=== PATIENT | male | born 1985 | race American Indian/Alaskan Native ===

== ENCOUNTER 2019-08-31 10:31 | Emergency (ER) | payer SELFPAY ==
[2019-08-31 10:37] VITALS: BP 166/93
--- NOTE | 2019-08-31 11:37 | Emergency Department Report ---
- General Chief Complaint: Sore Throat Stated Complaint: THROAT PAIN Time Seen by Provider: 08/31/19 11:03 Source: patient Mode of arrival: Ambulatory Limitations: No Limitations - History of Present Illness Initial Comments: 34-year-old male with a past medical history hypertension presents to the sore throat times one week. Patient states a cough productive of yellow sputum, n carlita congestion, and sore throat. No complaints of fever. Symptoms temporarily improved with [id number] medication. No difficulty swallowing or breathing reported. Patient also using nasal sprays with temporary reported improvement - Related Data Previous Rx's Medication Instructions Recorded Last Taken Type Dextromethorphan/Benzocaine 1 each PO Q2HR PRN #20 lozenge 08/31/19 Unknown Rx [Cepacol Sorethroat-Cough [place]] Sodium Chloride [Saline Nasal 1 - 2 sprays NS PRN PRN #1 bottle 08/31/19 Unknown Rx [place]] guaiFENesin/DEXTROMETHORPHAN 1 each PO BID PRN #20 tab.er.12h 08/31/19 Unknown Rx [Mucinex Dm ER 1,200-60 mg Tab] Allergies Allergy/AdvReac Type Severity Reaction Status Date / Time No Known Allergies Allergy Unverified 08/31/19 10:32 ED Review of Systems ROS: Stated complaint: THROAT PAIN Other details as noted in HPI Comment: All other systems reviewed and negative ED Past Medical Hx - Past Medical History Hx Hypertension: Yes - Surgical History Past Surgical History?: No - Medications Home Medications: Home Medications Medication Instructions Recorded Confirmed Last Taken Type Dextromethorphan/Benzocaine 1 each PO Q2HR PRN #20 lozenge 08/31/19 Unknown Rx [Cepacol Sorethroat-Cough [place]ena] Sodium Chloride [Saline Nasal 1 - 2 sprays NS PRN PRN #1 bottle 08/31/19 Unknown Rx [place]] guaiFENesin/DEXTROMETHORPHAN 1 each PO BID PRN #20 tab.er.12h 08/31/19 Unknown Rx [Mucinex Dm ER 1,200-60 mg Tab] ED Physical Exam - General Limitations: No Limitations - Other Other exam information: Gen.: No acute distress Head: Atraumatic Eyes: Normal appearance ENT: Moist mucous membranes, no edema, erythema, or exudate. No tender lymphadenopathy. Right nasal congestion Neck: Normal appearance, no posterior midline tenderness, no meningismus Chest: Clear to auscultation bilaterally Cardiovascular: Regular rate and rhythm Abdomen: Normal appearance, soft, nontender, no rebound or guarding, normal bowel sounds Back: Normal appearance, nontender Extremity: Full range of motion, normal appearance Neuro: Alert, clear speech, no focal motor or sensory deficit Psychiatric: Appropriate Skin: No rash ED Course Vital Signs 08/31/19 10:36 Temperature 98 F Pulse Rate 60 Respiratory 20 Rate Blood Pressure 166/93 [Left] O2 Sat by Pulse 98 Oximetry ED Medical Decision Making - Medical Decision Making Patient has URI symptoms involving cough, nasal congestion, and sore throat. Patient is afebrile and denies fever at home. Rapid strep is negative without signs exudates on exam. Patient be treated symptomatically for viral URI with viral pharyngitis. - Differential Diagnosis viral, bacterial, pharyngitis, URI Critical Care Time: No Critical care attestation.: If time is entered above; I have spent that time in minutes in the direct care of this critically ill patient, excluding procedure time. ED Disposition Clinical Impression: Viral URI, Pharyngitis Disposition: - TO HOME OR SELFCARE Is pt being admited?: No Does the pt Need Aspirin: No Condition: Stable Instructions: Upper Respiratory Infection (ED) Additional Instructions: Take the medication as prescribed. Follow-up with your doctor or with the doctor/clinic provided. Return if symptoms worsen as indicated by your discharge instructions. Prescriptions: Dextromethorphan/Benzocaine [Cepacol Sorethroat-Cough Leena] 1 each PO Q2HR PRN #20 lozenge PRN Reason: Sore Throat guaiFENesin/DEXTROMETHORPHAN [Mucinex Dm ER 1,200-60 mg Tab] 1 each PO BID PRN #20 tab.er.12h PRN Reason: Cough Sodium Chloride [Saline Nasal [place]] 1 - 2 sprays NS PRN PRN #1 bottle PRN Reason: Nasal Congestion Referrals: [facility] [Provider Group] - 3-5 Days Time of Disposition: 11:46
== END 2019-08-31 11:56 | disposition home or self-care (01) ==
LOC: ED 10:31
DX: J06.9 Acute upper respiratory infection, unspecified (principal); I10 Essential (primary) hypertension; Z79.899 Other long term (current) drug therapy
CPT/HCPCS: 87116; 87430

== ENCOUNTER 2019-09-03 15:12 | Emergency (ER) | payer SELFPAY ==
[2019-09-03 15:17] VITALS: BP 152/99
--- NOTE | 2019-09-03 15:29 | Emergency Department Report ---
Chief Complaint: Urogenital-Male Stated Complaint: STD CHECK Time Seen by Provider: 09/03/19 15:25 - HPI History of Present Illness: This is a 34-year-old male nontoxic, well in appearance with no signs of distress presents to the ED for STD check. Patient stated that his partner called and said has STD. Patient stated he is asymptotic. Denies any penile discharge, testicular pain, or swelling. Patient denies any urinary symptoms. Patient denies any fever, chills, headache, nausea, vomiting, chest pain or shortness of breathe. denies any other symptoms or complaints. Denies any allergies or PMH. - Exam Vital Signs: Vital Signs 09/03/19 15:15 Temperature 98.7 F Pulse Rate 103 H Respiratory 16 Rate Blood Pressure 152/99 O2 Sat by Pulse 96 Oximetry Physical Exam: no abdominal pain. no pelvic pain. no back pains. no urinary symptoms. no discharge. MSE screening note: Focused history and physical exam performed. Due to findings the following was ordered: ED Medical Decision Making - Medical Decision Making This is a 34-year-old male that presents with nonmedical emergency complaint. Patient is just requested for a STD test. Patient denies any symptoms. I gave patient many different referrals to follow-up with STD concerns. Patient was instructed to Follow-up with a primary care doctor in 3-5 days or if symptoms worsen and continue return to emergency room as soon as possible. At time of discharge, the patient does not seem toxic or ill in appearance. No acute signs of distress noted. Patient agrees to discharge treatment plan of care. No further questions noted by the patient. ED Disposition for MSE Clinical Impression: Possible exposure to STD Disposition: Z-07 MED SCREENING EXAM-LEFT Is pt being admited?: No Does the pt Need Aspirin: No Condition: Stable Instructions: Safe Sex (ED) Additional Instructions: Follow-up with the referrals that you have been provided in 3-5 days or if symptoms worsen and continue return to emergency room as soon as possible. Referrals: PRIMARY CARE, [Referring] - 3-5 Days GUSTAVO TROTTER MD [Staff Physician] - 3-5 Days [facility] [Outside] - 3-5 Days [facility] [Outside] - 3-5 Days
== END 2019-09-03 16:05 | disposition left against medical advice (07) ==
LOC: ED 15:12
DX: Z20.2 Contact with and (suspected) exposure to infections with a predominantly sexual mode of transmission (principal)
CPT/HCPCS: 99281

== ENCOUNTER 2020-01-27 10:15 | Emergency (ER) | payer SELFPAY ==
--- NOTE | 2020-01-27 12:09 | XRay Report ---
CHEST 2 VIEWS INDICATION / CLINICAL INFORMATION: cough. COMPARISON: None available. FINDINGS: SUPPORT DEVICES: None. HEART / MEDIASTINUM: No significant abnormality. LUNGS / PLEURA: No significant pulmonary or pleural abnormality. No pneumothorax. ADDITIONAL FINDINGS: No significant additional findings. IMPRESSION: 1. No acute abnormality of the chest. Signer Name: Ricardo Arora MD Signed: 01/27/2020 12:04 PM Workstation Name: [id number]
--- NOTE | 2020-01-27 12:31 | Emergency Department Report ---
Minor Respiratory - HPI Chief Complaint: Upper Respiratory Infection Stated Complaint: COLD SYM/HEADACHE Time Seen by Provider: 01/27/20 11:34 Pain Location: Facial, Throat, Nose Severity: mild Minor Respiratory: Yes Rhinorrhea, Yes Able to Tolerate Fluids, No Sore Throat, No Ear Pain, No Cough, No Sick Contacts, No Hemoptysis, No Chest Pain, No Shortness of Breath, No Fever Other History: Patient is a 34-year-old -[place] male who comes to the ER complaining of congestion and a nonproductive cough for 3 weeks. He denies any travel. He denies any known exposure to illness. He denies any recent travel. Patient states that he does have a 3-year-old that has had a runny nose for some time. Patient is here because he is concerned for CoVID19. Patient denies any shortness of breath. He is not hypoxic. His vital signs are normal as documented by the RN. Patient has a history of similar symptoms dating back to October when he was here and treated for sinus type symptoms at that time. He did not follow-up with PCP. ED Review of Systems ROS: Stated complaint: COLD SYM/HEADACHE Other details as noted in HPI Comment: All other systems reviewed and negative ED Past Medical Hx - Past Medical History Previous Medical History?: Yes Hx Hypertension: Yes - Surgical History Past Surgical History?: Yes Additional Surgical History: hernia repair - Family History Family history: no significant - Social History Smoking Status: Never Smoker Substance Use Type: Marijuana - Medications Home Medications: Home Medications Medication Instructions Recorded Confirmed Last Taken Type Azithromycin [Zithromax Z-DANYELL] 250 mg PO DAILY #6 tablet 01/27/20 Unknown Rx Fluticasone [Flonase] 1 spray NS QDAY #1 bottle 01/27/20 Unknown Rx predniSONE [Deltasone] 20 mg PO DAILY #5 tablet 01/27/20 Unknown Rx Minor Respiratory Exam - Exam General: Vital signs noted. No distress. Alert and acting appropriately. HEENT: Yes Moist Mucous Membranes, No Pharyngeal Erythema, No Pharyngeal Exudates, No Rhinorrhea, No Conjuctival Injection, No Frontal Tenderness, No Maxillary Tenderness Ear: Neither TM Bulge, Neither TM Erythema, Neither EAC Pain, Neither EAC Discharge Neck: Yes Supple, No Adenopathy Lungs: Yes Good Air Exchange, No Wheezes, No Ronchi, No Stridor, No Cough, No Labored Respirations, No Retractions, No Use of Accessory Muscles, No Other Abnormal Lung Sounds Heart: Yes Regular, No Murmur Abdomen: Yes Normal Bowel Sounds, No Tenderness, No Peritoneal Signs Skin: No Rash, No Edema Neurologic: Alert and oriented, no deficits. Musculoskeletal: Unremarkable. ED Medical Decision Making - Radiology Data Radiology results: report reviewed, image reviewed - Medical Decision Making XRAY NEG NO FEVER NORMAL VS NO TRAVEL NO EXPOSURE HO SAME- TX IN 10/30 DC HOME WITH RX AND OUTPATIENT FOLLOW UP VS NORMAL NOTED ON MANUAL CHART PT INSTRUCTED TO TAKE HIS BP MEDS - Differential Diagnosis RO PNA Critical care attestation.: If time is entered above; I have spent that time in minutes in the direct care of this critically ill patient, excluding procedure time. ED Disposition Clinical Impression: Upper respiratory infection Disposition: TO HOME OR SELFCARE Is pt being admited?: No Does the pt Need Aspirin: No Condition: Stable Instructions: Sinusitis (ED), Hypertension (ED) Additional Instructions: meds as ordered stay well hydrated motrin or tylenol for pain or fever follow up with pcp in 48 hours for recheck STAY HOME PER RECOMMENDATIONS TO LIMIT EXPOSURE TO COVID19 take your bp meds Prescriptions: predniSONE [Deltasone] 20 mg PO DAILY #5 tablet Fluticasone [Flonase] 1 spray NS QDAY #1 bottle Azithromycin [Zithromax Z-DANYELL] 250 mg PO DAILY #6 tablet Referrals: PRIMARY CARE, [Primary Care Provider] - 3-5 Days GILMAR GIRON MD [Staff Physician] - 3-5 Days Time of Disposition: 12:31
[2020-01-27] MEDS ORDERED: cloNIDine 0.1 MG TAB PO ONE (12:34)
== END 2020-01-27 13:15 | disposition home or self-care (01) ==
LOC: ED 10:15
DX: J06.9 Acute upper respiratory infection, unspecified (principal); I10 Essential (primary) hypertension; F12.90 Cannabis use, unspecified, uncomplicated; Z79.899 Other long term (current) drug therapy; Z98.890 Other specified postprocedural states
CPT/HCPCS: 71046